=== PATIENT | male | born 1960 | race Caucasian/White ===

== ENCOUNTER 2018-03-16 14:05 | Inpatient (IN) | payer MEDICAID ==
[~2018-03-16] VITALS: Ht 177.8 cm; Wt 101.0 kg
[2018-03-16] MEDS ORDERED: normal saline 1000ML IV soln IVB ONE (14:20)
[2018-03-16 15:54] LABS: BASOPHILS % (AUTO) 0.4 % (0-1); EOSINOPHILS % (AUTO) 0.2 % (0-6); HEMATOCRIT 32.3 % (42.0-52.0); HEMOGLOBIN 11.4 g/dl (14.0-17.9); LYMPHOCYTES # (AUTO) 0.4 X10'3 (1.1-4.8); LYMPHOCYTES % (AUTO) 3.7 % (21-51); MEAN CORPUSCULAR HEMOGLOBIN 35.3 PG (27.0-31.0); MEAN CORPUSCULAR HGB CONC 35.1 % (33.0-36.5); MEAN CORPUSCULAR VOLUME 100.5 FL (78-98); MEAN PLATELET VOLUME 8.1 FL (7.4-10.4); MONOCYTES # (AUTO) 0.5 X10'3 (0-0.9); MONOCYTES % (AUTO) 4.8 % (2-12); NEUTROPHILS # (AUTO) 8.8 X10'3 (1.8-7.7); NEUTROPHILS % (AUTO) 90.9 % (42-75); PLATELET COUNT 145 X10'3 (140-440); RED BLOOD COUNT 3.22 X10'6 (4.70-6.10); RED CELL DISTRIBUTION WIDTH 20.8 % (11.5-14.5); WHITE BLOOD COUNT 9.7 X10'3 (4.5-11.0)
[2018-03-16 16:07] LABS: ALANINE AMINOTRANSFERASE 89 U/L (12-78); ALBUMIN 3.3 G/DL (3.4-5.0); ALBUMIN/GLOBULIN RATIO 0.9 (1.1-1.5); ALKALINE PHOSPHATASE 67 IU/L (46-116); ANION GAP 14 (8-16); ASPARTATE AMINO TRANSFERASE 429 U/L (10-37); BILIRUBIN,TOTAL 0.9 MG/DL (0.1-1.0); BLOOD UREA NITROGEN 38 MG/DL (7-18); BUN/CREATININE RATIO 11.5 (5.4-32.0); CALCIUM 7.9 MG/DL (8.5-10.1); CHLORIDE 73 MMOL/L (99-107); CREATININE 3.31 MG/DL (0.60-1.10); GLUCOSE 119 MG/DL (70-104); POTASSIUM 3.8 MMOL/L (3.5-5.1); TOTAL CARBON DIOXIDE 23.6 MMOL/L (24-32); TOTAL PROTEIN 6.9 G/DL (6.4-8.2); eGFR 19 ML/MIN
[2018-03-16 16:09] LABS: ETHANOL < 0.010 GM/DL (0.0-0.010); SODIUM 111 MMOL/L (135-145)
[2018-03-16 16:19] LABS: TOTAL CELLS COUNTED 100
[2018-03-16 16:20] LABS: ANISOCYTOSIS 3+; PLATELET ESTIMATE NORMAL
[2018-03-16] MEDS ORDERED: CITA-311 PO (16:25)
[2018-03-16] MEDS ORDERED: HYDR25TA4 PO (16:25)
[2018-03-16] MEDS ORDERED: LOSA25TA96 PO (16:26)
[2018-03-16] MEDS ORDERED: mag hydrox/Alum hydrox/simeth 30ml oral suspension PO PRN (17:30)
[2018-03-16] MEDS ORDERED: HYDROcodone/acetaminophen 5mg/325mg tablet PO PRN (17:30)
[2018-03-16] MEDS ORDERED: morphine 2 MG/ML inj. syringe IV PRN ×2 (17:30)
[2018-03-16] MEDS ORDERED: acetaminophen 325mg tablet PO PRN ×2 (17:30)
[2018-03-16] MEDS ORDERED: ondansetron/PF 4mg/2ml inj IV PRN (17:30)
[2018-03-16] MEDS ORDERED: magnesium hydroxide 30ml (MOM) UD suspension PO PRN (17:30)
[2018-03-16] MEDS ORDERED: HYDROcodone/acetaminophen 10/325mg tab PO PRN (17:30)
[2018-03-16] MEDS: normal saline 1000ml 1,000 ML IV SCH (18:40)
[2018-03-16] MEDS ORDERED: LORazepam 2 mg/ml vial IV PRN (22:00)
[2018-03-16] MEDS ORDERED: LORazepam 1 MG tablet PO PRN (22:00)
[2018-03-16] MEDS ORDERED: haloperidol 5mg tablet PO PRN (22:00)
[2018-03-16] MEDS ORDERED: thiamine 100mg/ml 2ml inj. IV ONE (22:00)
[2018-03-16] MEDS ORDERED: dextrose 50%-water 50ml dispensing syringe IV PRN (22:00)
[2018-03-16] MEDS ORDERED: haloperidol lactate 5mg/ml inj IM PRN (22:00)
[2018-03-16 23:00] VITALS: BP 124/84
[2018-03-17] MEDS ORDERED: thiamine inj. 100 MG in normal saline 100ml IV soln 99 ML IV ONE (02:20)
[2018-03-17 03:00] VITALS: BP 126/84
[2018-03-17] MEDS: normal saline 1000ml 1,000 ML IV SCH ×3 (03:28→22:41)
[2018-03-17 06:00] VITALS: BP 131/69
[2018-03-17 06:01] LABS: BASOPHILS % (AUTO) 0 % (0-1); EOSINOPHILS % (AUTO) 0 % (0-6); HEMATOCRIT 30.9 % (42.0-52.0); HEMOGLOBIN 10.5 g/dl (14.0-17.9); LYMPHOCYTES # (AUTO) 0.5 X10'3 (1.1-4.8); LYMPHOCYTES % (AUTO) 6.7 % (21-51); MEAN CORPUSCULAR HEMOGLOBIN 34.4 PG (27.0-31.0); MEAN CORPUSCULAR HGB CONC 34.1 % (33.0-36.5); MEAN PLATELET VOLUME 8.1 FL (7.4-10.4); MONOCYTES # (AUTO) 0.6 X10'3 (0-0.9); MONOCYTES % (AUTO) 6.8 % (2-12); NEUTROPHILS # (AUTO) 7.1 X10'3 (1.8-7.7); NEUTROPHILS % (AUTO) 86.5 % (42-75); PLATELET COUNT 121 X10'3 (140-440); RED BLOOD COUNT 3.06 X10'6 (4.70-6.10); RED CELL DISTRIBUTION WIDTH 21.7 % (11.5-14.5); WHITE BLOOD COUNT 8.2 X10'3 (4.5-11.0)
[2018-03-17 06:08] LABS: ALBUMIN 2.9 G/DL (3.4-5.0); ANION GAP 16 (8-16); BLOOD UREA NITROGEN 33 MG/DL (7-18); BUN/CREATININE RATIO 13.8 (5.4-32.0); CHLORIDE 79 MMOL/L (99-107); CREATININE 2.39 MG/DL (0.60-1.10); GLUCOSE 81 MG/DL (70-104); POTASSIUM 3.5 MMOL/L (3.5-5.1); TOTAL CARBON DIOXIDE 21.5 MMOL/L (24-32); eGFR 28 ML/MIN
[2018-03-17 06:31] LABS: SODIUM 116 MMOL/L (135-145)
[2018-03-17 07:28] LABS: ANISOCYTOSIS 3+; PLATELET ESTIMATE DECREASED
[2018-03-17] MEDS: enoxaparin 40mg/0.4ml syringe SUBCUT SCH (08:56)
[2018-03-17 11:00] VITALS: BP_SYST 100; BP_SYST 87; BP_DIAS 61; BP_DIAS 69
[2018-03-17 11:19] LABS: ALBUMIN 2.9 G/DL (3.4-5.0); ANION GAP 14 (8-16); BLOOD UREA NITROGEN 34 MG/DL (7-18); BUN/CREATININE RATIO 16.1 (5.4-32.0); CHLORIDE 81 MMOL/L (99-107); CREATININE 2.11 MG/DL (0.60-1.10); GLUCOSE 99 MG/DL (70-104); POTASSIUM 3.2 MMOL/L (3.5-5.1); TOTAL CARBON DIOXIDE 21.9 MMOL/L (24-32); eGFR 32 ML/MIN
[2018-03-17 11:22] LABS: SODIUM 117 MMOL/L (135-145)
[2018-03-17] MEDS ORDERED: oxyCODONE IR 5mg (immed. release) tablet PO PRN (13:25)
[2018-03-17 15:00] VITALS: BP 137/78
[2018-03-17 16:01] LABS: ALBUMIN 2.9 G/DL (3.4-5.0); ANION GAP 14 (8-16); BLOOD UREA NITROGEN 34 MG/DL (7-18); BUN/CREATININE RATIO 17.3 (5.4-32.0); CHLORIDE 83 MMOL/L (99-107); CREATININE 1.97 MG/DL (0.60-1.10); GLUCOSE 93 MG/DL (70-104); POTASSIUM 3.1 MMOL/L (3.5-5.1); TOTAL CARBON DIOXIDE 20.6 MMOL/L (24-32); eGFR 35 ML/MIN
[2018-03-17 16:21] LABS: SODIUM 118 MMOL/L (135-145)
[2018-03-17 18:00] VITALS: BP 111/72
[2018-03-17 20:28] LABS: ALANINE AMINOTRANSFERASE 83 U/L (12-78); ALBUMIN 2.6 G/DL (3.4-5.0); ALBUMIN/GLOBULIN RATIO 0.7 (1.1-1.5); ALKALINE PHOSPHATASE 62 IU/L (46-116); ANION GAP 14 (8-16); ASPARTATE AMINO TRANSFERASE 319 U/L (10-37); BILIRUBIN,TOTAL 0.4 MG/DL (0.1-1.0); BLOOD UREA NITROGEN 33 MG/DL (7-18); BUN/CREATININE RATIO 17.5 (5.4-32.0); CALCIUM 7.8 MG/DL (8.5-10.1); CHLORIDE 84 MMOL/L (99-107); CREATININE 1.89 MG/DL (0.60-1.10); GLUCOSE 126 MG/DL (70-104); POTASSIUM 3.1 MMOL/L (3.5-5.1); TOTAL CARBON DIOXIDE 20.6 MMOL/L (24-32); TOTAL PROTEIN 6.1 G/DL (6.4-8.2); eGFR 37 ML/MIN
[2018-03-17 20:34] LABS: SODIUM 119 MMOL/L (135-145)
[2018-03-17] MEDS: thiamine 100mg tablet PO SCH (20:42)
[2018-03-17 22:00] VITALS: BP 114/83
[2018-03-17 22:30] LABS: ALBUMIN 2.7 G/DL (3.4-5.0); ANION GAP 13 (8-16); BLOOD UREA NITROGEN 34 MG/DL (7-18); CALCIUM 8.2 MG/DL (8.5-10.1); CHLORIDE 84 MMOL/L (99-107); GLUCOSE 91 MG/DL (70-104); TOTAL CARBON DIOXIDE 20.9 MMOL/L (24-32); eGFR 42 ML/MIN
[2018-03-17 22:33] LABS: SODIUM 118 MMOL/L (135-145)
[2018-03-17] MEDS ORDERED: potassium Cl 40MEQ/NS 500ml 500 ML IV PRN ×2 (23:25)
[2018-03-17] MEDS ORDERED: potassium Cl 20 mEq SR tablet PO PRN (23:25)
[2018-03-18] VITALS (7 sets, daily range): BP systolic 97–151; BP diastolic 66–101
[2018-03-18] MEDS: potassium Cl 20 mEq SR tablet PO PRN ×2 (00:50→05:02)
[2018-03-18 05:59] LABS: BASOPHILS % (AUTO) 0.2 % (0-1); EOSINOPHILS % (AUTO) 0.7 % (0-6); HEMATOCRIT 28.9 % (42.0-52.0); LYMPHOCYTES # (AUTO) 0.7 X10'3 (1.1-4.8); LYMPHOCYTES % (AUTO) 11.9 % (21-51); MEAN CORPUSCULAR HEMOGLOBIN 34.9 PG (27.0-31.0); MEAN CORPUSCULAR HGB CONC 34.6 % (33.0-36.5); MEAN CORPUSCULAR VOLUME 100.9 FL (78-98); MEAN PLATELET VOLUME 7.9 FL (7.4-10.4); MONOCYTES # (AUTO) 0.6 X10'3 (0-0.9); MONOCYTES % (AUTO) 9.5 % (2-12); NEUTROPHILS # (AUTO) 4.6 X10'3 (1.8-7.7); NEUTROPHILS % (AUTO) 77.7 % (42-75); PLATELET COUNT 130 X10'3 (140-440); RED BLOOD COUNT 2.86 X10'6 (4.70-6.10); WHITE BLOOD COUNT 5.9 X10'3 (4.5-11.0)
[2018-03-18 06:09] LABS: ALBUMIN 2.6 G/DL (3.4-5.0); ANION GAP 13 (8-16); BLOOD UREA NITROGEN 30 MG/DL (7-18); BUN/CREATININE RATIO 19.5 (5.4-32.0); CALCIUM 7.8 MG/DL (8.5-10.1); CHLORIDE 87 MMOL/L (99-107); CREATININE 1.54 MG/DL (0.60-1.10); GLUCOSE 88 MG/DL (70-104); POTASSIUM 3.3 MMOL/L (3.5-5.1); SODIUM 121 MMOL/L (135-145); TOTAL CARBON DIOXIDE 20.7 MMOL/L (24-32); eGFR 47 ML/MIN
[2018-03-18] MEDS: thiamine 100mg tablet PO SCH ×2 (07:53→19:51)
[2018-03-18] MEDS: enoxaparin 40mg/0.4ml syringe SUBCUT SCH (07:53)
[2018-03-18] MEDS: normal saline 1000ml 1,000 ML IV SCH ×2 (07:54→18:32)
[2018-03-18 08:07] LABS: ANISOCYTOSIS 3+; PLATELET ESTIMATE DECREASED
[2018-03-18] MEDS ORDERED: LORazepam 2 mg/ml vial IV PRN (10:40)
[2018-03-18] MEDS ORDERED: LORazepam 1 MG tablet PO PRN (10:40)
[2018-03-18 11:44] LABS: ALBUMIN 2.5 G/DL (3.4-5.0); ANION GAP 11 (8-16); BLOOD UREA NITROGEN 29 MG/DL (7-18); BUN/CREATININE RATIO 20.9 (5.4-32.0); CALCIUM 7.9 MG/DL (8.5-10.1); CHLORIDE 91 MMOL/L (99-107); CREATININE 1.39 MG/DL (0.60-1.10); GLUCOSE 103 MG/DL (70-104); POTASSIUM 3.7 MMOL/L (3.5-5.1); SODIUM 124 MMOL/L (135-145); TOTAL CARBON DIOXIDE 21.9 MMOL/L (24-32); eGFR 52 ML/MIN
[2018-03-18 15:42] LABS: ALBUMIN 2.6 G/DL (3.4-5.0); ANION GAP 8 (8-16); BLOOD UREA NITROGEN 29 MG/DL (7-18); BUN/CREATININE RATIO 20.3 (5.4-32.0); CHLORIDE 93 MMOL/L (99-107); CREATININE 1.43 MG/DL (0.60-1.10); GLUCOSE 116 MG/DL (70-104); POTASSIUM 3.7 MMOL/L (3.5-5.1); SODIUM 123 MMOL/L (135-145); TOTAL CARBON DIOXIDE 22.1 MMOL/L (24-32); eGFR 51 ML/MIN
[2018-03-18] MEDS ORDERED: ibuprofen tablet 400 MG TABLET PO ONE (17:25)
[2018-03-18 19:06] LABS: CREATINE KINASE 6274 U/L (39-308)
[2018-03-18 22:39] LABS: ALBUMIN 2.6 G/DL (3.4-5.0); ANION GAP 8 (8-16); BLOOD UREA NITROGEN 31 MG/DL (7-18); CALCIUM 7.9 MG/DL (8.5-10.1); CHLORIDE 94 MMOL/L (99-107); CREATININE 1.35 MG/DL (0.60-1.10); GLUCOSE 102 MG/DL (70-104); POTASSIUM 3.9 MMOL/L (3.5-5.1); SODIUM 124 MMOL/L (135-145); TOTAL CARBON DIOXIDE 22.4 MMOL/L (24-32); eGFR 54 ML/MIN
[2018-03-19] VITALS (7 sets, daily range): BP systolic 108–155; BP diastolic 73–96
[2018-03-19] MEDS: normal saline 1000ml 1,000 ML IV SCH ×3 (04:10→23:57)
[2018-03-19 06:45] LABS: BASOPHILS % (AUTO) 0.7 % (0-1); EOSINOPHILS # (AUTO) 0.1 X10'3 (0-0.9); EOSINOPHILS % (AUTO) 3.4 % (0-6); HEMATOCRIT 27.4 % (42.0-52.0); HEMOGLOBIN 9.4 g/dl (14.0-17.9); LYMPHOCYTES # (AUTO) 0.8 X10'3 (1.1-4.8); LYMPHOCYTES % (AUTO) 19.5 % (21-51); MEAN CORPUSCULAR HGB CONC 34.5 % (33.0-36.5); MEAN CORPUSCULAR VOLUME 101.4 FL (78-98); MEAN PLATELET VOLUME 6.8 FL (7.4-10.4); MONOCYTES # (AUTO) 0.5 X10'3 (0-0.9); MONOCYTES % (AUTO) 12.6 % (2-12); NEUTROPHILS # (AUTO) 2.6 X10'3 (1.8-7.7); NEUTROPHILS % (AUTO) 63.8 % (42-75); PLATELET COUNT 147 X10'3 (140-440); RED CELL DISTRIBUTION WIDTH 21.6 % (11.5-14.5)
[2018-03-19 06:54] LABS: ALBUMIN 2.6 G/DL (3.4-5.0); ANION GAP 11 (8-16); BLOOD UREA NITROGEN 24 MG/DL (7-18); CHLORIDE 95 MMOL/L (99-107); CREATININE 1.09 MG/DL (0.60-1.10); GLUCOSE 98 MG/DL (70-104); POTASSIUM 3.6 MMOL/L (3.5-5.1); SODIUM 128 MMOL/L (135-145); eGFR 69 ML/MIN
[2018-03-19] MEDS: thiamine 100mg tablet PO SCH ×2 (07:28→20:49)
[2018-03-19] MEDS: enoxaparin 40mg/0.4ml syringe SUBCUT SCH (07:29)
[2018-03-19 08:43] LABS: ANISOCYTOSIS 3+; PLATELET ESTIMATE NORMAL
[2018-03-19 12:08] LABS: ALBUMIN 2.6 G/DL (3.4-5.0); ANION GAP 7 (8-16); BLOOD UREA NITROGEN 24 MG/DL (7-18); BUN/CREATININE RATIO 25.3 (5.4-32.0); CALCIUM 7.8 MG/DL (8.5-10.1); CHLORIDE 96 MMOL/L (99-107); CREATININE 0.95 MG/DL (0.60-1.10); GLUCOSE 95 MG/DL (70-104); POTASSIUM 3.8 MMOL/L (3.5-5.1); SODIUM 127 MMOL/L (135-145); eGFR 81 ML/MIN
[2018-03-19 15:59] LABS: ALBUMIN 2.7 G/DL (3.4-5.0); ANION GAP 8 (8-16); BLOOD UREA NITROGEN 24 MG/DL (7-18); BUN/CREATININE RATIO 17.1 (5.4-32.0); CALCIUM 8.2 MG/DL (8.5-10.1); CHLORIDE 95 MMOL/L (99-107); GLUCOSE 109 MG/DL (70-104); POTASSIUM 3.7 MMOL/L (3.5-5.1); SODIUM 127 MMOL/L (135-145); eGFR 52 ML/MIN
[2018-03-19 22:18] LABS: ALBUMIN 2.5 G/DL (3.4-5.0); ANION GAP 8 (8-16); BLOOD UREA NITROGEN 23 MG/DL (7-18); BUN/CREATININE RATIO 18.7 (5.4-32.0); CALCIUM 8.1 MG/DL (8.5-10.1); CHLORIDE 97 MMOL/L (99-107); CREATININE 1.23 MG/DL (0.60-1.10); GLUCOSE 121 MG/DL (70-104); POTASSIUM 3.7 MMOL/L (3.5-5.1); SODIUM 126 MMOL/L (135-145); TOTAL CARBON DIOXIDE 21.2 MMOL/L (24-32); eGFR 60 ML/MIN
[2018-03-20 03:00] VITALS: BP 154/93
[2018-03-20] MEDS: normal saline 1000ml 1,000 ML IV SCH ×2 (06:07→08:07)
[2018-03-20 07:00] VITALS: BP 141/86
[2018-03-20 07:21] LABS: BASOPHILS % (AUTO) 0.5 % (0-1); EOSINOPHILS # (AUTO) 0.1 X10'3 (0-0.9); EOSINOPHILS % (AUTO) 3.5 % (0-6); HEMATOCRIT 26.1 % (42.0-52.0); HEMOGLOBIN 8.8 g/dl (14.0-17.9); LYMPHOCYTES # (AUTO) 0.8 X10'3 (1.1-4.8); LYMPHOCYTES % (AUTO) 19.5 % (21-51); MEAN CORPUSCULAR HEMOGLOBIN 34.2 PG (27.0-31.0); MEAN CORPUSCULAR HGB CONC 33.8 % (33.0-36.5); MEAN CORPUSCULAR VOLUME 101.4 FL (78-98); MEAN PLATELET VOLUME 6.2 FL (7.4-10.4); MONOCYTES # (AUTO) 0.6 X10'3 (0-0.9); MONOCYTES % (AUTO) 16.1 % (2-12); NEUTROPHILS # (AUTO) 2.4 X10'3 (1.8-7.7); NEUTROPHILS % (AUTO) 60.4 % (42-75); PLATELET COUNT 181 X10'3 (140-440); RED BLOOD COUNT 2.58 X10'6 (4.70-6.10); RED CELL DISTRIBUTION WIDTH 21.4 % (11.5-14.5); WHITE BLOOD COUNT 3.9 X10'3 (4.5-11.0)
[2018-03-20 07:26] LABS: ALBUMIN 2.4 G/DL (3.4-5.0); ANION GAP 9 (8-16); BLOOD UREA NITROGEN 17 MG/DL (7-18); BUN/CREATININE RATIO 21.3 (5.4-32.0); CALCIUM 7.9 MG/DL (8.5-10.1); CHLORIDE 98 MMOL/L (99-107); GLUCOSE 103 MG/DL (70-104); POTASSIUM 3.7 MMOL/L (3.5-5.1); SODIUM 130 MMOL/L (135-145); TOTAL CARBON DIOXIDE 22.7 MMOL/L (24-32); eGFR > 90 ML/MIN
[2018-03-20] MEDS: thiamine 100mg tablet PO SCH (08:04)
[2018-03-20] MEDS: enoxaparin 40mg/0.4ml syringe SUBCUT SCH (08:05)
[2018-03-20 10:21] LABS: ALBUMIN 2.5 G/DL (3.4-5.0); ANION GAP 9 (8-16); BLOOD UREA NITROGEN 16 MG/DL (7-18); BUN/CREATININE RATIO 17.6 (5.4-32.0); CHLORIDE 97 MMOL/L (99-107); CREATININE 0.91 MG/DL (0.60-1.10); GLUCOSE 110 MG/DL (70-104); SODIUM 130 MMOL/L (135-145); TOTAL CARBON DIOXIDE 24.1 MMOL/L (24-32); eGFR 86 ML/MIN
[2018-03-20 10:24] LABS: POTASSIUM 3.9 MMOL/L (3.5-5.1)
[2018-03-20] MEDS ORDERED: THI100T PO (10:31)
[2018-03-20] MEDS ORDERED: FERR324T4 PO (10:31)
== END 2018-03-20 14:05 | disposition home or self-care (01) | DRG 280 ==
LOC: ER 14:07 → ED HOLD 17:28 → PCU 3S 19:19
PROVIDERS: ADMIT Internal Medicine; ATTEND Internal Medicine
DX: K70.10 Alcoholic hepatitis without ascites (principal); N17.9 Acute kidney failure, unspecified; I11.0 Hypertensive heart disease with heart failure; I50.9 Heart failure, unspecified; E87.1 Hypo-osmolality and hyponatremia; E86.0 Dehydration; S09.90XA Unspecified injury of head, initial encounter; D53.9 Nutritional anemia, unspecified; E87.6 Hypokalemia; F10.239 Alcohol dependence with withdrawal, unspecified; F32.9 Major depressive disorder, single episode, unspecified; Z98.41 Cataract extraction status, right eye; W18.39XA Other fall on same level, initial encounter; Y93.89 Activity, other specified; Y92.89 Other specified places as the place of occurrence of the external cause; Y99.8 Other external cause status
CPT/HCPCS: 36415; 70450; 71045; 80048; 80053; 80320; 82550; 82948; 83880; 85025; 87070; 93005; 93306; 96360; 97116; 97161; 97530; 99285; G0378; J1650; J3411; J7030